=== PATIENT | female | born 2000 | race Caucasian/White ===

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

== ENCOUNTER 2019-02-24 19:06 | Emergency (ER) | payer SELFPAY, BC ==
[2019-02-24] MEDS: KETOROLAC 60 MG INJ IM (23:31)
[2019-02-24] MEDS: traMADol 50 MG TAB PO (23:32)
== END 2019-02-25 02:41 | disposition home or self-care (01) ==
LOC: FTE 02-25 02:41
DX: S93.401A Sprain of unspecified ligament of right ankle, initial encounter (principal); W10.9XXA Fall (on) (from) unspecified stairs and steps, initial encounter; Y92.9 Unspecified place or not applicable
CPT/HCPCS: 73610; 73610-RT; 73630; 81025; 96372; 99284-25